=== PATIENT | male | born 1990 | race Caucasian/White ===

== ENCOUNTER 2017-10-26 19:29 | Emergency (ER) | payer SELFPAY ==
[2017-10-26 19:32] VITALS: BP 134/75; PULSE 112; RESP 20; TEMP 99.9
[2017-10-26] MEDS ORDERED: SODIUM CHLORIDE 0.9% FLUSH 10 ML FLUSH IVF PRN (20:00)
[2017-10-26 20:06] LABS: BILIRUBIN, URINE NEG (NEG); BLOOD, URINE NEG (NEG); GLUCOSE,URINE NEG (NEG); KETONE, URINE NEG (NEG); NITRITE,URINE NEG (NEG); URINE LEUKOCYTE ESTERASE NEG (NEG)
--- NOTE | 2017-10-26 20:06 | PD ---
HPI Chief Complaint: Complaint Time Seen by Provider: 19:55 Travel History International Travel<30 days: No Contact w/Intl Traveler<30days: No Traveled to known affect area: No History of Present Illness HPI 27-year-old male presents to the emergency department for 5 days of swelling of the left testicle and scrotum. Patient states area has been painful 5/10 intensity 3 days. Patient denies any dysuria frequency urgency abdominal pain hematuria or flank pain. Patient denies any trauma. Patient does repetitive lifting and construction and merari. Patient is unable to identify specific injury. Patient's had no fever chills nausea or vomiting. No prior history of scrotal edema. No penile discharge. Patient is unable to identify exacerbating or alleviating factors other than sitting provide some relief and standing worsen symptoms. Patient has taken no acetaminophen or ibuprofen. Patient takes no medications on a daily basis and has no chronic medical conditions. Patient does admit to marijuana use. (adalberto blocker and sewer Oanh ). [facility] Past Medical History Narrative Medical Negative past medical history negative surgical history no tobacco use positive marijuana use; nursing notes reviewed Past Surgical History Narrative Surgical no tobacco; neg PMH/PSH; nursing notes reviewed Social History Tobacco Use: No Substance Use: Yes Allergies-Medications (Allergen,Severity, Reaction): Coded Allergies: No Known Allergies (Unverified , 10/26/17) Reported Meds & Prescriptions Reported Meds & Active Scripts Active Cipro (Ciprofloxacin HCl) 500 Mg Tab 500 Mg PO BID 7 Days Narrative Medication No medications Review of Systems Except as stated in HPI: all other systems reviewed are Neg General / Constitutional: No: Fever, Chills HENT: No: Congestion Cardiovascular: No: Chest Pain or Discomfort Respiratory: No: Shortness of Breath Gastrointestinal: No: Nausea, Vomiting, Abdominal Pain Genitourinary: Positive: Other, No: Dysuria Musculoskeletal: No: Myalgias (testicular mass), Arthralgias Skin: No Rash Neurologic: No: Weakness Psychiatric: No: Anxiety Hematologic/Lymphatic: No: Lymph Node Enlargement Physical Exam Narrative GENERAL: Well-developed well-nourished male in no acute distress no murmurs* stress SKIN: Warm and dry. HEAD: Normocephalic. EYES: No scleral icterus. No injection or drainage. NECK: Supple, trachea midline. No JVD or lymphadenopathy. CARDIOVASCULAR: Regular rate and rhythm without murmurs, gallops, or rubs. RESPIRATORY: Breath sounds equal bilaterally. No accessory muscle use. GASTROINTESTINAL: Abdomen soft, non-tender, nondistended. : Circumcised male with bilaterally descended testicles scrotal edema without erythema positive cremasteric reflex left inguinal mass. MUSCULOSKELETAL: No cyanosis, or edema. BACK: Nontender without obvious deformity. No CVA tenderness. Data Data Last Documented VS Vital Signs Date Time Temp Pulse Resp B/P (MAP) Pulse Ox O2 Delivery O2 Flow Rate FiO2 10/26/17 23:13 76 16 110/65 (80) 99 10/26/17 20:55 99.6 Room Air Orders Orders Urinalysis - C+S If Indicated (10/26/17 19:55) Us Testicles W Doppler (10/26/17 19:55) Sodium Chloride 0.9% Flush (Ns Flush) (10/26/17 20:00) ^ Saline Lock (10/26/17 20:39) Complete Blood Count With Diff (10/26/17 20:39) Basic Metabolic Panel (Bmp) (10/26/17 20:39) Gc And Chlamydia Pcr (10/26/17 20:39) Sodium Chlor 0.9% 1000 Ml Inj (Ns 1000 M (10/26/17 20:45) Ketorolac Inj (Toradol Inj) (10/26/17 21:00) Ceftriaxone Inj (Rocephin Inj) (10/26/17 21:30) Azithromycin Powd Pack (Zithromax Powd P (10/26/17 21:30) Mandatory Outpatient Referral (10/26/17 21:29) Ed Discharge Order (10/26/17 21:37) Labs Laboratory Tests Test 10/26/17 19:58 10/26/17 21:01 10/26/17 22:35 Urine Color YELLOW Urine Turbidity CLEAR Urine pH 6.0 Urine Specific [place] 1.031 Urine Protein TRACE mg/dL Urine Glucose (UA) NEG mg/dL Urine Ketones NEG mg/dL Urine Occult Blood NEG Urine Nitrite NEG Urine Bilirubin NEG Urine Leukocyte Esterase NEG Urine WBC 6-8 /hpf Urine WBC Clumps Urine Squamous Epithelial Cells 0-5 /hpf Urine Bacteria /hpf Urine Mucus FEW /lpf Microscopic Urinalysis Comment CULT NOT INDICATED White Blood Count 14.6 TH/MM3 Red Blood Count 5.05 MIL/MM3 Hemoglobin 14.0 GM/DL Hematocrit 41.8 % Mean Corpuscular Volume 82.9 FL Mean Corpuscular Hemoglobin 27.8 PG Mean Corpuscular Hemoglobin Concent 33.5 % Red Cell Distribution Width 12.2 % Platelet Count 262 TH/MM3 Mean Platelet Volume 8.4 FL Neutrophils (%) (Auto) 80.1 % Lymphocytes (%) (Auto) 9.2 % Monocytes (%) (Auto) 8.1 % Eosinophils (%) (Auto) 0.6 % Basophils (%) (Auto) 2.0 % Neutrophils # (Auto) 11.7 TH/MM3 Lymphocytes # (Auto) 1.3 TH/MM3 Monocytes # (Auto) 1.2 TH/MM3 Eosinophils # (Auto) 0.1 TH/MM3 Basophils # (Auto) 0.3 TH/MM3 CBC Comment DIFF FINAL Differential Comment Blood Urea Nitrogen 16 MG/DL Creatinine 1.00 MG/DL Random Glucose 107 MG/DL Calcium Level 8.2 MG/DL Sodium Level 137 MEQ/L Potassium Level 3.8 MEQ/L Chloride Level 102 MEQ/L Carbon Dioxide Level 27.2 MEQ/L Anion Gap 8 MEQ/L Estimat Glomerular Filtration Rate 91 ML/MIN Chlamydia trachomatis DNA (PCR) DETECTED Neisseria gonorrhoeae DNA (PCR) NOT DETECTED MDM Medical Decision Making Medical Screen Exam Complete: Yes Emergency Medical Condition: Yes Medical Record Reviewed: Yes Interpretation(s) UA: wbc's US testicles: CONCLUSION: 1. Testicular mass. Positive testicular blood flow without evidence for torsion. 2. Increased epididymal blood flow bilaterally could represent epididymitis. Mike Estrada MD on October 26, 2017 at 21:06 Board Certified Radiologist. This report was verified electronically. Vital Signs Date Time Temp Pulse Resp B/P (MAP) Pulse Ox O2 Delivery O2 Flow Rate FiO2 10/26/17 20:55 99.6 83 16 119/65 (83) 97 Room Air 10/26/17 19:32 99.9 112 20 134/75 (94) Differential Diagnosis Inguinal hernia, epididymoorchitis, testicular mass, scrotal mass, abscess; unlikely testicular torsion Narrative Course Urine specimen collected and ultrasound with Doppler ordered of the testicle Ultrasound per reading radiologist testicular mass no report of abscess or torsion and epididymitis Patient given one-time dose of Rocephin and azithromycin and prescription for Cipro and patient will be given work excuse and referral to urologist with mandatory referral ordered Sepsis Criteria SIRS Criteria (2 or more): Heart rate over 90, WBC > 56906, < 4000 or > 10% bands Sepsis Criteria (SIRS+source): Infect source susp/known (epididymitis) Diagnosis Primary Impression: Epididymitis Additional Impression: Mass of left testicle Referrals: Urologist [address] [address] Alba Patient Instructions: General Instructions Additional Instructions: Follow-up with urologist regarding testicular mass and epididymitis; call office on Saturday to confirm appointment Take antibiotic as prescribed No work 3 days Return to the emergency for any concerns or change in condition Take ibuprofen/Advil/Motrin 800 mg as often as every 8 hours for pain associated with inflammation or for fever 100.4F or greater Take acetaminophen/Tylenol every 4 hours as needed for fever 100.4F or greater Rest Med/Other Pt SpecificInfo: Prescription(s) given Scripts Ciprofloxacin (Cipro) 500 Mg Tab 500 MG PO BID for Infection for 7 Days, #14 TAB 0 Refills Prov: Argentina Awad MD 10/26/17 Argentina Awad MD Oct 26, 2017 20:06
[2017-10-26 20:16] LABS: MUCUS URINE FEW /lpf (OCC); URINE COLOR YELLOW (YELLW/STRAW)
[2017-10-26 20:17] LABS: SQUAMOUS EPITHELIAL CELL URINE 0-5 /hpf (0-5)
[2017-10-26] MEDS ORDERED: SODIUM CHLOR 0.9% 1000 ML INJ 1,000 ML IV ONE (20:45)
[2017-10-26 20:55] VITALS: BP 119/65; PULSE 83; RESP 16; TEMP 99.6; O2SAT 97
[2017-10-26] MEDS ORDERED: KETOROLAC TROMETHAMINE 30 MG/ML (IVP) VIAL IV PUSH ONE (21:00)
--- NOTE | 2017-10-26 21:10 | RADRPT ---
EXAM DATE/TIME: 10/26/2017 20:35 [place] COMPARISON: No previous studies available for comparison. INDICATIONS : Testicular pain. MEDICAL HISTORY : Substance use. SURGICAL HISTORY : None. ENCOUNTER: Initial ACUITY: 4 - 6 days PAIN SCORE: 4/10 LOCATION: Bilateral testicles. MEASUREMENTS: RIGHT TESTICLE: 4.7 x 2.9 x 2.1cm LEFT TESTICLE: 4.1 x 3.1 x 2.2cm FINDINGS: RIGHT TESTICLE: Homogeneous echotexture without intra or extratesticular mass. Blood flow is symmetric and within no rmal limits. No hydrocele or varicocele. Epididymis is within normal limits except increased blood flow. LEFT TESTICLE: Homogeneous echotexture without intra or extratesticular mass. Blood flow is symmetric and within no rmal limits. No hydrocele or varicocele. Epididymis is within normal limits except increased blood flow. SCROTUM: Within normal limits. CONCLUSION: 1. Testicular mass. Positive testicular blood flow without evidence for torsion. 2. Increased epididymal blood flow bilaterally could represent epididymitis. Mike Estrada MD on October 26, 2017 at 21:06 Board Certified Radiologist. This report was verified electronically.
[2017-10-26] MEDS ORDERED: CIPR-9 PO (21:26)
[2017-10-26 21:30] LABS: AUTOMATED NEUTROPHIL # 11.7 TH/MM3 (1.8-7.7); BASOPHIL # 0.3 TH/MM3 (0-0.2); EOSINOPHIL # 0.1 TH/MM3 (0-0.4); EOSINOPHIL % 0.6 % (0.0-4.0); HEMATOCRIT 41.8 % (39.0-51.0); LYMPH % 9.2 % (9.0-44.0); LYMPHOCYTE # 1.3 TH/MM3 (1.0-4.8); MEAN CELL VOLUME 82.9 FL (80.0-100.0); MEAN CORPUSCULAR HEMOGLOBIN 27.8 PG (27.0-34.0); MEAN CORPUSCULAR HGB CONC 33.5 % (32.0-36.0); MEAN PLATELET VOLUME 8.4 FL (7.0-11.0); MONO % 8.1 % (0.0-8.0); MONOCYTE # 1.2 TH/MM3 (0-0.9); NEUT % 80.1 % (16.0-70.0); PLATELET COUNT 262 TH/MM3 (150-450); RED BLOOD COUNT 5.05 MIL/MM3 (4.50-5.90); RED CELL DISTRIBUTION WIDTH 12.2 % (11.6-17.2); WHITE BLOOD COUNT 14.6 TH/MM3 (4.0-11.0)
[2017-10-26] MEDS ORDERED: cefTRIAXone INJ 1,000 MG in SODIUM CHLORIDE 0.9% INJ 100 ML IV ONE (21:30)
[2017-10-26] MEDS ORDERED: AZITHROMYCIN PWD FOR SUSP 1 GM PACKET PO ONE (21:30)
[2017-10-26 21:42] LABS: CALCIUM 8.2 MG/DL (8.5-10.1)
[2017-10-26 21:43] LABS: BICARBONATE 27.2 MEQ/L (21.0-32.0)
[2017-10-26 21:57] VITALS: RESP 16
[2017-10-26 23:13] VITALS: BP 110/65
== END 2017-10-26 23:24 | disposition home or self-care (01) ==
LOC: PHED 19:29
DX: N45.1 Epididymitis (principal); R22.9 Localized swelling, mass and lump, unspecified
CPT/HCPCS: 76870; 80048; 81001; 85025; 87491; 87591; 93975; 96361; 96365; 96375; 99285; J0696; J1885; J7030